=== PATIENT | female | born 1965 | race Two or more races ===

== ENCOUNTER 2018-05-16 16:46 | Emergency (ER) | payer SELFPAY ==
--- NOTE | 2018-05-16 16:56 | PDOC ---
History of Present Illness - General Chief Complaint: CVA/TIA Stated Complaint: LEFT SIDE FACIAL DROOP Time Seen by Provider: 05/16/18 16:54 - History of Present Illness Initial Comments: 05/16/18 16:54 52 yo F with no significant pmh who p/w left sided facial droop. Patient reports 1 day of stable left sided upper and lower facial weakness. + Left sided taste distrubance x 1 day. Denies hyperacusis, weakness of ext, dysphagia , lightheadedness, vertigo, tinnitus, hearing loss. No identifable triggers or alleviators. Patient denies PHILIP, vision loss, N/V, F,C, CP, SOB, urinary complaints, abdominal pain, diarrhea, constipation, lightheadedness. PMHx: as noted above ROS: as noted SHx: Denies IVDA Allergies:NKDA Past History - Past Medical History Allergies/Adverse Reactions: Allergies Allergy/AdvReac Type Severity Reaction Status Date / Time No Known Allergies Allergy Verified 05/16/18 16:48 Home Medications: Ambulatory Orders Dextran 70/Hypromellose [Artificial Tears Eye Drops] 15 ml OP DAILY #1 drops 09/26 Dextran 70/Hypromellose [Artificial Tears] 1 each OP PRN PRN 14 Days droperette 05/16/18 Levothyroxine [Synthroid -] 125 mcg PO DAILY 05/16/18 Peg 400/Hypromellose/Glycerin [Eye Drop Tears] 15 ml OP PRN PRN 14 Days #1 drops 05/16/18 Prednisone [Deltasone] See Taper PO DAILY #22 tablet 05/16/18 Prednisone [Deltasone] See Taper PO DAILY 5 Days tablet MDD 3 tab 05/16/18 Prednisone [Deltasone] See Taper PO DAILY 7 Days #22 tablet 05/16/18 Valacyclovir HCl [Valtrex -] 1,000 mg PO TID #21 tablet MDD 3 tab 05/16/18 Valacyclovir HCl [Valtrex -] 1,000 mg PO TID #21 tablet MDD 3 tab 05/16/18 Review of Systems - Review of Systems Comments:: 05/16/18 16:55 GENERAL/CONSTITUTIONAL: No fever or chills. No weakness. HEAD, EYES, EARS, NOSE AND THROAT: No change in vision. No ear pain or discharge. No sore throat. CARDIOVASCULAR: No chest pain or shortness of breath RESPIRATORY: No cough, wheezing, or hemoptysis. GASTROINTESTINAL: No nausea, vomiting, diarrhea or constipation. GENITOURINARY: No dysuria, frequency, or change in urination. MUSCULOSKELETAL: No joint or muscle swelling or pain. No neck or back pain. SKIN: No rash NEUROLOGIC:+ Left sided facial weakness. No headache, vertigo, loss of consciousness. ENDOCRINE: No increased thirst. No abnormal weight change HEMATOLOGIC/LYMPHATIC: No anemia, easy bleeding, or history of blood clots. ALLERGIC/IMMUNOLOGIC: No hives or skin allergy. *Physical Exam - Physical Exam Comments: 05/16/18 16:55 GENERAL: Awake, alert, and fully oriented, in no acute distress HEAD: No signs of trauma, normocephalic, atraumatic EYES: Left sided depressed lateral commisure of mouth. Absent forehead wrinkling on left sided forehead. PERRLA, EOMI, sclera anicteric, conjunctiva clear ENT: Auricles normal inspection, hearing grossly normal, nares patent, oropharynx clear without exudates. Moist mucosa NECK: Normal ROM, supple, no lymphadenopathy, JVD, or masses LUNGS: No distress, speaks full sentences, clear to auscultation bilaterally HEART: Regular rate and rhythm, normal S1 and S2, no murmurs, rubs or gallops, peripheral pulses normal and equal bilaterally. EXTREMITIES : Normal inspection, Normal range of motion, no edema. No clubbing or cyanosis. NEUROLOGICAL: Cranial nerves II through XII grossly intact. Normal speech, normal gait, no focal sensorimotor deficits SKIN: Warm, Dry, normal turgor, no rashes or lesions noted NIH Stroke Scale - Last Known Well Date/Time & Onset Date Last Known Well: 05/14/18 Time Last Known Well: 07:00 - Initial Evaluation Level of consciousness: Alert Ask patient the month and their age: Answers both correctly Ask patient to open & close eyes; make fist and let go: Obeys both correctly Best gaze (horizontal eye movement): Normal Visual field testing: No visual field loss Facial paresis (Show teeth/raise eyebrows/close eyes tight): Complete paralysis of one or both sides (Upper and lower face) Motor Function: Left Arm: Normal Motor Function: Right Arm: Normal (extends arm 90 (or 45) degrees for 10 seconds without drift Motor Function: Left Leg: Normal (extends leg 30 degrees for 5 seconds without drift) Motor Function: Right Leg: Normal (extends leg 30 degrees for 5 seconds without drift) Limb Ataxia: No ataxia Sensory(Use pinprick test arms,legs,trunk,face/side to side): Normal Best language (Describe picture, name items, read sentences): No Aphasia Dysarthria (read several words): Normal articulation Extinction and Inattention: No abnormality - Total Score NIH Stroke Scale Score: 3 tPA Exclusion checklist 3-4.5h - Time Elapsed Date last known well: 05/14/18 Time last known well: 07:00 Elaspsed time: 2 Day(s) and 10 Hour(s) and 49 Minutes - Thrombolytic Therapy Candidate Is patient eligible for thrombolytic therapy: No - Exclusion Criteria 3-4.5 hr SBP greater than 185 or DBP greater than 110mmHg despite tx: No Recent IC/spinal surgery,head trauma or stroke<3mos.: No Hx IC hemorrhage, IC neoplasm, AV malformation or aneurysm: No Active internal bleeding: No Blding diathesis(low plt ct, inc PTT,INR>1.7 or use of NOAC): No Symptoms suggest subarachnoid hemorrhage: No CT demonstrates multilobar infarct(>1/3 cerebral hemiphere): No Arterial puncture at noncompressible site in previous 7 days: No Blood glucose concentration less than 50mg/dL (2.7mmol/L): No - Relative Exclusion Criteria 3-4.5 hr Life expectancy <1 yr or severe co-morbid illness: No : No Patient/family refused: No Rapid improvement: No Stroke severity too mild: Yes Recent acute HI (w/in previous 3 months): No Seizure at onset with postictal residual neuro impairments: No Major surgery or serious trauma w/in previous 14 days: No Recent GI or hemorrhage (w/in previous 21 days): No - Add'l Relative Exclusion 3-4.5 hr Age > 80: No Hx of both diabetes AND prior ischemic stroke: No Taking an oral anticoagulant regardless of INR: No NIHSS >25: No - Ineligibility reason(s) Reasons No tPA given: Outside of window - delayed arrival, See reason(s) noted above Critical Care Time/MDM Note - Medical Decision Making Note: 05/16/18 16:55 52 yo F with no significant pmh who p/w left sided upper and lower facial weakness x 1 day. Vitals wnl, AF, A&Ox3. No other neuro deficits. Physical exam notable for + left sided depressed lateral commisure of mouth. Absent forehead wrinkling on left sided forehead. Physical exam otherwise unremarkable. Low suspicion CVA/TIA, trigeminal neuralgia, tick paralysis,Mercedes Jiménez syndrome, Malignancy. ED Course: 05/16/18 17:17 Valacyvlovir, Steroid taper 60 mg, and artificial tears sent to pharmacy. No other neuro deficits on physical exam. Likely [place] palsy. No indication for CTH imaging. Patient advised to f/u with neuro/PMD *DC/Admit/Observation/Transfer Diagnosis at time of Disposition: [place]'s palsy - Discharge Dispostion Disposition: HOME Condition at time of disposition: Stable Decision to Admit order: No - Prescriptions Prescriptions: Dextran 70/Hypromellose [Artificial Tears] 1 each OP PRN PRN 14 Days droperette PRN Reason: Dry Eyes Dextran 70/Hypromellose [Artificial Tears Eye Drops] 15 ml OP DAILY #1 drops Peg 400/Hypromellose/Glycerin [Eye Drop Tears] 15 ml OP PRN PRN 14 Days #1 drops PRN Reason: Dry Eyes Prednisone [Deltasone] See Taper PO DAILY 5 Days tablet MDD 3 tab Prednisone [Deltasone] See Taper PO DAILY 7 Days #22 tablet Prednisone [Deltasone] See Taper PO DAILY #22 tablet Valacyclovir HCl [Valtrex -] 1,000 mg PO TID #21 tablet MDD 3 tab Valacyclovir HCl [Valtrex -] 1,000 mg PO TID #21 tablet MDD 3 tab - Referrals Referrals: Pino Lim MD [Staff Physician] - Brett Oglesby MD [Staff Physician] - - Patient Instructions Printed Discharge Instructions: DI for Guzman's Palsy Additional Instructions: Please return to the emergency department with any new or worsening symptoms or concerns. Please follow up with your primary care physician within 72 hours. Please take Prednisone daily as prescribed. Please take Valacyclovir daily as prescribed. Please use lubricating eye drops daily as needed. Return to ED with any new weakness, sensory changes, slurred speech, visual changes, or other concerning symptoms. It is imperative that you follow up with your primary care physician or neurology within 72 hours. - Post Discharge Activity - Attestations Physician Attestion: 05/16/18 16:56 I attest to the information provided in this note.
[2018-05-16] MEDS ORDERED: predniSONE 20 MG TABLET (UD) PO ONE (17:06)
[2018-05-16] MEDS ORDERED: valACYclovir HCL 1000 MG TABLET PO ONE (17:06)
[2018-05-16 17:20] VITALS: BP 165/72; PULSE 88; TEMP 98.1; BMI 34.4
[2018-05-16] MEDS ORDERED: valACYclovir HCL 500 MG TABLET (FP) ONE (17:22)
[2018-05-16] MEDS ORDERED: predniSONE 20 MG TABLET (UD) ONE (17:22)
--- NOTE | 2018-05-16 18:19 | PDOC ---
Attending Attestation - Resident Resident Name: Donald Higginbotham - ED Attending Attestation I have performed the following: I have examined & evaluated the patient, The case was reviewed & discussed with the resident, I agree w/resident's findings & plan, Exceptions are as noted - HPI HPI: 05/16/18 17:36 Ms Catherine is a 52 yo F who presents to the ER for evaluation of right facial weakness Pt awoke with these symptoms today No headache no head trauma No sensory or motor deficits in the upper or lower extremities No prior episodes like this No fevers or chills 05/16/18 18:19 - Physicial Exam PE: 05/16/18 18:38 Pt is awake and alert Oriented x 3 RRR CTA B/L Neuro: Right facial weakness - flattened right nasolabial fold, unable to raise right eyebrow Tearing from right eye EOMI, PERRLA Extremities Motor 5/5 Extremities Sensation intact - Medical Decision Making 05/16/18 18:40 Pt presents to the ER with what looks like [place] Palsy Will discharge to home on :Antiviral, Steroids, Eye Drops, Eye patching Pt asked to follow up with Neurology Clinical Impression: [place] Palsy, initial presentation
== END 2018-05-16 17:47 | disposition home or self-care (01) ==
LOC: FER 16:46
DX: G51.0 Bell's palsy (principal)
CPT/HCPCS: 99282-25